=== PATIENT | male | born 1995 | race Caucasian/White ===

== ENCOUNTER 2020-02-05 03:59 | Emergency (ER) | payer MEDICAID ==
[~2020-02-05] VITALS: Ht 175.3 cm; Wt 75.0 kg
[~2020-02-05 03:59] MED LIST: NO HOME MEDS
[2020-02-05 04:09] VITALS: BP 107/58
[2020-02-05] MEDS ORDERED: quetiapine 100mg tablet PO ONE (04:15)
[2020-02-05] MEDS ORDERED: QUET200T PO (04:19)
--- NOTE | 2020-02-05 04:34 | NUR ---
Pt was given a dose of seroquel and immediately told me he needed his food. Pt had just refused to sign his registration paperwork and was irritable. I told him he needed to finish the paperwork then he could have the food on his way out. Pt signed my papers, and then did not take his dc papers or perscription. Security updated me that he threw his papers on the ground in the lobby and some of the food in bag we had give him onto the ground as he left.
== END 2020-02-05 04:43 | disposition home or self-care (01) ==
LOC: ER 03:59
DX: F41.9 Anxiety disorder, unspecified (principal); Z76.0 Encounter for issue of repeat prescription; F20.9 Schizophrenia, unspecified; F12.90 Cannabis use, unspecified, uncomplicated; Z72.89 Other problems related to lifestyle; Z60.2 Problems related to living alone; Z56.0 Unemployment, unspecified; Z59.0 Homelessness; Z88.2 Allergy status to sulfonamides; Z79.899 Other long term (current) drug therapy
CPT/HCPCS: 99283

== ENCOUNTER 2020-02-05 09:35 | Emergency (ER) | payer MEDICAID ==
[~2020-02-05 09:35] MED LIST changes: +QUET200T PO
--- NOTE | 2020-02-05 10:32 | NUR ---
WHILE ATTEMPTING TO TRIAGE PT, HE BECAME AGITATED AND YELLING TO USE THE PHONE TO CALL HIS MOM TO TAKE HIM TO [facility]. I ASKED WHAT HE NEEDED TO BE SEEN FOR TODAY, HE SHOUTED "SOME FUCKING FOOD!". SECURITY HAD ALREADY BEEN CALLED BY ER REG BECAUSE PT WAS YELLING AT OTHER PTS IN THE LOBBY. PT THEN SAID "I NEED SOMEDRUGS" WHEN ASKED WHICH MED HE NEEDED, HE YELLED "SEROQUEL!" THENATTEMPTED TO SWING AT MYSELF AND GOT UP AND RAN OUT OF TRIAGE THROUGH LOBBY AND OUTSIDE. SECURITY FOLLOWED.
== END 2020-02-05 10:37 | disposition left against medical advice (07) ==
LOC: ER 09:36
DX: R45.1 Restlessness and agitation (principal); Z53.21 Procedure and treatment not carried out due to patient leaving prior to being seen by health care provider

== ENCOUNTER 2021-09-05 21:42 | Emergency (ER) | payer SELFPAY ==
[~2021-09-05] VITALS: Ht 175.3 cm; Wt 81.4 kg
[2021-09-05 21:44] VITALS: BP 118/92
== END 2021-09-05 22:25 | disposition left against medical advice (07) ==
LOC: ER 21:43
DX: R07.89 Other chest pain (principal); F20.9 Schizophrenia, unspecified; F12.90 Cannabis use, unspecified, uncomplicated; Z72.89 Other problems related to lifestyle; Z60.2 Problems related to living alone; Z56.0 Unemployment, unspecified; Z59.00 Homelessness unspecified; Z88.2 Allergy status to sulfonamides; Z79.899 Other long term (current) drug therapy; Z53.21 Procedure and treatment not carried out due to patient leaving prior to being seen by health care provider
CPT/HCPCS: 93005

== ENCOUNTER 2022-02-20 19:23 | Emergency (ER) | payer MEDICAID, OTHER ==
[~2022-02-20] VITALS: Ht 170.2 cm; Wt 65.0 kg
[2022-02-20 19:35] VITALS: BP 136/78
[2022-02-20] MEDS ORDERED: erythromycin ophthalmic ointment 1gm tube LEFTEYE ONE (20:15)
[2022-02-20] MEDS ORDERED: POLOS LEFTEYE (20:16)
[2022-02-20] MEDS ORDERED: ERYT1OIN6 LEFTEYE (20:16)
== END 2022-02-20 20:26 | disposition home or self-care (01) ==
LOC: ER 19:24
DX: S05.02XA Injury of conjunctiva and corneal abrasion without foreign body, left eye, initial encounter (principal); H10.32 Unspecified acute conjunctivitis, left eye; F12.90 Cannabis use, unspecified, uncomplicated; Z88.2 Allergy status to sulfonamides; Z59.00 Homelessness unspecified; Z56.0 Unemployment, unspecified; X58.XXXA Exposure to other specified factors, initial encounter; Y93.89 Activity, other specified; Y92.89 Other specified places as the place of occurrence of the external cause; Y99.8 Other external cause status
CPT/HCPCS: 99283

== ENCOUNTER 2022-02-24 13:49 | Emergency (ER) | payer OTHER ==
[~2022-02-24] VITALS: Ht 175.3 cm; Wt 62.0 kg
[~2022-02-24 13:49] MED LIST changes: +ERYT1OIN6 LEFTEYE; +POLOS LEFTEYE
[2022-02-24 13:59] VITALS: BP 120/61
[2022-02-24] MEDS ORDERED: QUEtiapine 25mg tablet PO SCH (14:20)
--- NOTE | 2022-02-24 15:00 | NUR ---
Pt stated to staff he no longer wanted to be treated and wanted to leave. 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
== END 2022-02-24 15:23 | disposition home or self-care (01) ==
LOC: ER 13:49
DX: M79.605 Pain in left leg (principal); F12.90 Cannabis use, unspecified, uncomplicated; Z56.0 Unemployment, unspecified; Z59.00 Homelessness unspecified; Z72.9 Problem related to lifestyle, unspecified; Z72.89 Other problems related to lifestyle; Z88.2 Allergy status to sulfonamides; Z79.2 Long term (current) use of antibiotics; Z79.899 Other long term (current) drug therapy
CPT/HCPCS: 73590; 99283